=== PATIENT | male | born 1980 | race Caucasian/White ===

== ENCOUNTER 2017-02-11 21:06 | Emergency (ER) | payer OTHER ==
[~2017-02-11] VITALS: Ht 180.3 cm; Wt 62.6 kg
[~2017-02-11 21:06] MED LIST: AMOXICILLIN500 M2 PO; ANAPROX DS550 MG PO; ATARAX,VISTARIL50 MG PO; AUGMENTIN 875 M1 TAB PO; CLARITIN10 MG PO; CLEOCIN150 MG PO; CYCLOBENZAPRINE10 MG PO; CYCLOBENZAPRINE5 M3 PO; DAYPRO600 M1 PO; ELIMITE 5%60 GM T; FLEXERIL10 MG PO; HYDROCODONE BIT1 T11 PO; IBU800 MG PO; IBUPROFEN400 MG PO; KEFLEX500 MG PO; LIDEX 0.05% CRE15 GM T; LOMOTIL 0.025 M1 TA1 PO; MEDROL DOSEPAK4 MG PO; MOTRIN800 MG PO; Motrin,Rufen800 MG PO; NAPROSYN500 MG PO; NKHM; NORCO 325 MG-101 TAB PO; PENICILLIN VK500 MG PO; PREDNICOT20 MG PO; PREDNISONE10 MG PO; PROVENTIL0.09 MG/AC IH; ROBAXIN750 MG PO; TOBREX OPHTH S2.5 ML OPH; ULTRAM50 MG PO; VIBRAMYCIN100 MG PO; VICODIN 5-3001 EACH PO; VICODIN 5/500 505 MG PO; VICODIN 500 MG-1 TAB PO; ZITHROMAX Z PA250 MG PO; ZITHROMAX250 MG PO; ZOFRAN ODT4 MG SL
[2017-02-11] MEDS ORDERED: BACTRIM DS 8001 TA1 PO (22:00)
== END 2017-02-11 22:02 | disposition home or self-care (01) ==
LOC: ED 21:06
DX: L02.612 Cutaneous abscess of left foot (principal); F17.200 Nicotine dependence, unspecified, uncomplicated

== ENCOUNTER 2017-12-07 18:42 | Emergency (ER) | payer OTHER ==
[~2017-12-07] VITALS: Wt 62.6 kg
[~2017-12-07 18:42] MED LIST changes: +BACTRIM DS 8001 TA1 PO
== END 2017-12-07 19:57 | disposition left against medical advice (07) ==
LOC: ED 18:42
DX: Z53.21 Procedure and treatment not carried out due to patient leaving prior to being seen by health care provider (principal)

== ENCOUNTER 2018-02-08 17:20 | Emergency (ER) | payer OTHER ==
[~2018-02-08] VITALS: Ht 177.8 cm; Wt 61.2 kg
[2018-02-08] MEDS ORDERED: AMOXICILLIN500 M2 PO (18:09)
[2018-02-08] MEDS ORDERED: FLONASE ALLERG9.9 ML NAS (18:09)
== END 2018-02-08 17:39 | disposition home or self-care (01) ==
LOC: ED 17:20
DX: J01.90 Acute sinusitis, unspecified (principal); F17.200 Nicotine dependence, unspecified, uncomplicated

== ENCOUNTER 2019-02-14 11:47 | Emergency (ER) | payer OTHER ==
[~2019-02-14] VITALS: Wt 62.6 kg
[~2019-02-14 11:47] MED LIST changes: +FLONASE ALLERG9.9 ML NAS
[2019-02-14] MEDS ORDERED: NORCO 5-325 TA1 EACH PO (13:50)
== END 2019-02-14 14:15 | disposition home or self-care (01) ==
LOC: ED 11:47
DX: S22.31XA Fracture of one rib, right side, initial encounter for closed fracture (principal); F17.200 Nicotine dependence, unspecified, uncomplicated; W50.0XXA Accidental hit or strike by another person, initial encounter; Y93.89 Activity, other specified; Y92.89 Other specified places as the place of occurrence of the external cause; Y99.8 Other external cause status

== ENCOUNTER 2021-04-08 18:14 | Emergency (ER) | payer OTHER ==
[~2021-04-08] VITALS: Wt 82.1 kg
[~2021-04-08 18:14] MED LIST changes: +NORCO 5-325 TA1 EACH PO
[2021-04-08] MEDS ORDERED: NAPROSYN500 MG PO (21:41)
== END 2021-04-08 21:36 | disposition home or self-care (01) ==
LOC: ED 18:14
DX: S80.01XA Contusion of right knee, initial encounter (principal); Z79.899 Other long term (current) drug therapy; X58.XXXA Exposure to other specified factors, initial encounter; Y93.89 Activity, other specified; Y92.89 Other specified places as the place of occurrence of the external cause; Y99.8 Other external cause status

== ENCOUNTER 2021-08-03 15:52 | Emergency (ER) | payer OTHER | END 2021-08-03 16:47 | disposition left against medical advice (07) | LOC: ED 15:52 | DX: J34.0 Abscess, furuncle and carbuncle of nose (principal); Z53.21 Procedure and treatment not carried out due to patient leaving prior to being seen by health care provider ==

== ENCOUNTER 2022-04-18 13:32 | Emergency (ER) | payer OTHER ==
[~2022-04-18] VITALS: Ht 180.3 cm; Wt 63.5 kg
[2022-04-18] MEDS ORDERED: VOLTAREN ARTHRI20 GM T (14:07)
[2022-04-18] MEDS ORDERED: TYLENOL325 M1 PO (14:07)
[2022-04-18] MEDS ORDERED: NAPROXEN250 MG PO (14:07)
== END 2022-04-18 14:30 | disposition home or self-care (01) ==
LOC: ED 13:32
DX: S49.92XA Unspecified injury of left shoulder and upper arm, initial encounter (principal); W18.39XA Other fall on same level, initial encounter; Y93.89 Activity, other specified; Y92.89 Other specified places as the place of occurrence of the external cause; Y99.8 Other external cause status

== ENCOUNTER 2022-06-28 10:36 | Emergency (ER) | payer OTHER ==
[~2022-06-28] VITALS: Ht 177.8 cm; Wt 63.5 kg
[~2022-06-28 10:36] MED LIST changes: +NAPROXEN250 MG PO; +TYLENOL325 M1 PO; +VOLTAREN ARTHRI20 GM T
[2022-06-28] MEDS ORDERED: NAPROXEN250 MG PO (11:34)
[2022-06-28] MEDS ORDERED: TYLENOL325 M1 PO (11:34)
== END 2022-06-28 12:03 | disposition home or self-care (01) ==
LOC: ED 10:36
DX: S62.326A Displaced fracture of shaft of fifth metacarpal bone, right hand, initial encounter for closed fracture (principal); S62.324A Displaced fracture of shaft of fourth metacarpal bone, right hand, initial encounter for closed fracture; F17.200 Nicotine dependence, unspecified, uncomplicated; W22.8XXA Striking against or struck by other objects, initial encounter; Y93.89 Activity, other specified; Y92.89 Other specified places as the place of occurrence of the external cause; Y99.8 Other external cause status

== ENCOUNTER → 2022-07-07 | Day surgery (SDC) | payer OTHER ==
[2022-07-06 14:23] VITALS: BP 142/83
[~2022-07-07] VITALS: Ht 177.8 cm; Wt 65.8 kg
[~2022-07-07] MED LIST changes: +HYDROCODONE-AC1 EAC1 PO
[2022-07-07 10:58] VITALS: BP 119/67
[2022-07-07 11:13] VITALS: BP 111/71
[2022-07-07 11:28] VITALS: BP 103/58
[2022-07-07 11:43] VITALS: BP 111/64
[2022-07-07 11:58] VITALS: BP 116/63
== END | disposition home or self-care (01) ==
LOC: SDC 07-03 14:00
PROVIDERS: ATTEND Orthopaedic Surgery
DX: S62.326A Displaced fracture of shaft of fifth metacarpal bone, right hand, initial encounter for closed fracture (principal); S62.324A Displaced fracture of shaft of fourth metacarpal bone, right hand, initial encounter for closed fracture; Z98.890 Other specified postprocedural states; F17.210 Nicotine dependence, cigarettes, uncomplicated; X58.XXXA Exposure to other specified factors, initial encounter; Y93.89 Activity, other specified; Y92.89 Other specified places as the place of occurrence of the external cause; Y99.8 Other external cause status

== ENCOUNTER → 2022-07-29 | Outpatient (CLI) | payer OTHER | END | disposition home or self-care (01) | LOC: RAD 09:32 | PROVIDERS: ATTEND Orthopaedic Surgery | DX: S62.326A Displaced fracture of shaft of fifth metacarpal bone, right hand, initial encounter for closed fracture (principal); S62.324A Displaced fracture of shaft of fourth metacarpal bone, right hand, initial encounter for closed fracture; X58.XXXA Exposure to other specified factors, initial encounter; Y93.89 Activity, other specified; Y92.89 Other specified places as the place of occurrence of the external cause; Y99.8 Other external cause status ==

== ENCOUNTER 2024-03-14 09:45 | Emergency (ER) | payer OTHER ==
[~2024-03-14] VITALS: Ht 177.8 cm; Wt 70.3 kg
[2024-03-14] MEDS ORDERED: Tdap Vaccine 0.5 ML SYR (Adult Vaccine) IM ONE (10:00)
[2024-03-14] MEDS ORDERED: CEPHALEXIN500 M1 PO (10:32)
== END 2024-03-14 10:48 | disposition home or self-care (01) ==
LOC: ED 09:45
DX: S61.531A Puncture wound without foreign body of right wrist, initial encounter (principal); W45.0XXA Nail entering through skin, initial encounter; Y93.89 Activity, other specified; Y92.89 Other specified places as the place of occurrence of the external cause; Y99.8 Other external cause status